=== PATIENT | male | born 1985 | race Two or more races ===

== ENCOUNTER 2021-06-30 19:47 | Emergency (ER) | payer MEDICAID, OTHER ==
[~2021-06-30] VITALS: Ht 193 cm; Wt 108.9 kg
[2021-06-30 22:11] VITALS: BP 171/102
== END 2021-07-01 00:39 | disposition home or self-care (01) ==
LOC: ER 19:47
DX: S33.5XXA Sprain of ligaments of lumbar spine, initial encounter (principal); S13.9XXA Sprain of joints and ligaments of unspecified parts of neck, initial encounter; S23.3XXA Sprain of ligaments of thoracic spine, initial encounter; S80.02XA Contusion of left knee, initial encounter; S80.01XA Contusion of right knee, initial encounter; V43.62XA Car passenger injured in collision with other type car in traffic accident, initial encounter; Y93.89 Activity, other specified; Y92.89 Other specified places as the place of occurrence of the external cause; Y99.8 Other external cause status
CPT/HCPCS: 72040; 72070; 72100; 73562; 73590

== ENCOUNTER 2022-02-26 16:02 | Emergency (ER) | payer MEDICAID ==
[~2022-02-26] VITALS: Ht 193 cm; Wt 235.0 kg
[2022-02-26] MEDS ORDERED: IBUP800T26 PO (20:32)
[2022-02-26] MEDS ORDERED: MONT-8 PO (20:32)
[2022-02-26] MEDS ORDERED: PROM1SOL4 PO (20:32)
[2022-02-26] MEDS ORDERED: AZITTAB PO (20:32)
[2022-02-26 20:41] VITALS: BP 155/98
== END 2022-02-26 22:09 | disposition home or self-care (01) ==
LOC: ER 16:02
DX: B34.9 Viral infection, unspecified (principal); R07.89 Other chest pain; Z20.822 Contact with and (suspected) exposure to COVID-19
CPT/HCPCS: 36415; 71046; 87070; 87804; 87880

== ENCOUNTER 2022-06-11 02:17 | Emergency (ER) | payer MEDICAID ==
[~2022-06-11] VITALS: Ht 193 cm; Wt 106.8 kg
[~2022-06-11 02:17] MED LIST: AZITTAB PO; IBUP800T26 PO; MONT-8 PO; PROM1SOL4 PO
[2022-06-11] MEDS ORDERED: HYDROcodone-ACET 5/325MG TAB PO ONE (03:45)
[2022-06-11] MEDS ORDERED: DICL75TA4 PO (05:05)
[2022-06-11 05:42] VITALS: BP 127/86
== END 2022-06-11 05:46 | disposition home or self-care (01) ==
LOC: ER 02:17
DX: S20.211A Contusion of right front wall of thorax, initial encounter (principal); Z79.2 Long term (current) use of antibiotics; Z79.1 Long term (current) use of non-steroidal anti-inflammatories (NSAID); Z79.899 Other long term (current) drug therapy; V80.010A Animal-rider injured by fall from or being thrown from horse in noncollision accident, initial encounter; Y93.89 Activity, other specified; Y92.89 Other specified places as the place of occurrence of the external cause; Y99.8 Other external cause status
CPT/HCPCS: 71250